=== PATIENT | female | born 1970 | race Caucasian/White ===

== ENCOUNTER 2019-06-26 14:07 | Outpatient (CLI) | payer OTHER, SELFPAY ==
--- NOTE | ~2019-06-26 | XR_ITS ---
XR abdomen/kub 1V 06/26/2019 14:22 Indication: Follow-up kidney stones Procedure: KUB Comparison: 12/14/2015 Findings: Bowel gas pattern is nonobstructive. No renal or ureteral stones are identified. There are pelvic phleboliths. Mild levoscoliosis of the lumbar spine. No acute osseous abnormality. Impression: 1: No acute abdominal abnormality. Reviewed, dictated and finalized at location A. Impression: 1: No acute abdominal abnormality.
== END 2019-06-26 14:08 | disposition home or self-care (01) ==
LOC: ANHIMG 14:13
PROVIDERS: PCP Family Medicine; Visit Provider Internal Medicine Nephrology
DX: N20.0 Calculus of kidney (principal)
CPT/HCPCS: 74018

== ENCOUNTER 2019-07-02 20:16 | Emergency (ER) | payer OTHER, SELFPAY ==
--- NOTE | ~2019-07-02 | XR_ITS ---
EXAMINATION: XR chest 1V portable EXAM DATE: 07/02/2019 21:10 INDICATION: Posterior chest pain. TECHNIQUE: Portable AP frontal chest x-ray was obtained. Comparison is made to prior examination from 10/14/2015. FINDINGS: The lungs are clear. There are no pleural effusions. Cardiomediastinal silhouette is norm al. There is no pneumothorax suspected. The bones and soft tissues are unremarkable. IMPRESSION: No acute cardiopulmonary findings. Reviewed, dictated and finalized at location A.
[2019-07-02 20:20] VITALS: BP 129/64; PULSE 87; RESP 19; TEMP 35.9; O2SAT 100
--- NOTE | 2019-07-02 20:33 | ECG_ITS ---
Measurements Intervals [place] Rate: 89 P: 45 GA: 191 QRS: 36 QRSD: 96 T: 29 QT: 351 QTc: 429 Interpretive Statements SINUS RHYTHM LOW QRS VOLTAGE IN PRECORDIAL LEADS DELAYED PRECORDIAL R/S TRANSITION BORDERLINE T WAVE ABNORMALITY- INFERIOR LEADS BASELINE ARTIFACT- I, II, III, AVR, AVF, V4 BORDERLINE ECG Electronically Signed On 07-03-2019 7:00:28 CDT by Josemanuel Torres D.O.
--- NOTE | 2019-07-02 20:43 | ED.GENADULT ---
HPI - General Adult General Chief complaint: Back Pain/Injury Stated complaint: chest pain Time Seen by Provider: 07/02/19 20:21 Source: patient Mode of arrival: ambulatory Limitations: no limitations History of Present Illness HPI narrative: This patient is a 48 yo female who presents for evaluation of left upper back since Sunday. Patient states she has tingling pain starting in her left upper back and it radiates around substernal chest. She also reports she has pain under left arm. This pain has been constant. She denies exacerbating factors. She reports she took hydrocodone last night that helped with her pain. She denies associated diaphoresis, sob, cough, fever, dizziness. Onset (ago): day(s) (5 days) Related Data Allergies Allergy/AdvReac Type Severity Reaction Status Date / Time No Known Allergies Allergy Unverified 05/05/19 07:51 Review of Systems Review of Systems: All systems reviewed & are unremarkable except as noted in HPI and below Constitutional: Constitutional: Denies chills and Denies fever(s) Cardiovascular: Cardiovascular: Reports chest pain Respiratory: Respiratory: Denies cough and Denies dyspnea Gastrointestinal: Gastrointestinal: Reports nausea Musculoskeletal: Musculoskeletal: Denies back pain PMFSH Past Medical History Medical History Diabetes High cholesterol History of kidney stones Surgical History Surgical History History of foot surgery History of surgical removal of skin lesion Family History Family History Father Hypertension Mother Hypertension Family history of chronic obstructive pulmonary disease Depression Family history of cataracts Family history of arthritis Sibling Family history of lupus erythematosus Family history of heart disease in male family member before age 55 Grandparent Hypertension Family history of atrial fibrillation Family history of heart disease in male family member before age 55 Diabetes mellitus Other Cerebrovascular accident Family history of allergic disorder Family history of cardiovascular disease Family history of elevated blood lipids Family history of obesity Family history of thyroid disease Family history of ulcerative colitis Social History Social History Smoking status: Never smoker Alcohol intake: current Exam Narrative: Exam Narrative: GENERAL: Well-appearing, well-nourished, and in no acute distress. HEAD: Normocephalic, atraumatic EYES: PERRLA and EOMI, conjunctiva clear without discharge NECK: Supple, without lymphadenopathy or mass RESPIRATORY: No respiratory distress, Airway patent, Respirations non-labored, Clear to auscultation without rales, rhonchi or wheeze HEART: Regular rate and rhythm. No murmur heard. Normal peripheral pulses. ABDOMEN: Soft, nontender, nondistended, normal active bowel sounds. No masses. No rebound or guarding, No organomegaly. EXTREMITIES: No edema, normal strength with full range of motion. SKIN: Warm, dry; there is vesciular cluster in left upper back and 2 smaller area under left breast. NEURO: Alert and oriented x3. CN 2-12 grossly intact. No focal deficits. PSYCH: Normal mood and affect. Course Reevaluation(s) Reevaluation #1: Patient has declined pain medication. I discussed with patient with rash along area of pain and dermatome her pain appears to be due to shingles. Unlikely aortic pathology, unllikely PE or cardiac or pancreatic. She has no abdominal tenderness. Date: 07/02/19 Time: 22:11 Vital Signs Vital signs: Vital Signs Temperature 96.7 F L 07/02/19 20:20 Pulse Rate 87 07/02/19 20:20 Respiratory Rate 19 07/02/19 20:20 Blood Pressure 129/64 07/02/19 20:20 Pulse Oximetry 100 07/02/19 20:20 Temperature 98.1 F 07/02/19 22:23 P
[2019-07-02 20:51] LABS: Basophils Absolute Auto 0.1 K/mm3 (0.0-0.1); Basophils Percent Auto 1.5 % (0.2-1.2); Eosinophils Absolute Auto 0.8 K/mm3 (0-0.3); Eosinophils Percent Auto 12.2 % (0-4.4); Hematocrit 45.4 % (37.0-47.0); Hemoglobin 15.1 g/dL (12.0-15.0); Immature Granulocyte Absolute 0.02 K/mm3 (0.00-0.031); Immature Granulocyte Percent A 0.3 % (0-0.5); Lymphocytes Absolute Auto 2.21 K/mm3 (0.9-3.2); Lymphocytes Percent Auto 33.7 % (18.3-44.2); Mean Corpuscular HGB Conc 33.3 g/dl (32-36); Mean Corpuscular Hemoglobin 28.9 pg (26-34); Mean Platelet Volume 11.3 fl (7.4-10.4); Monocytes Absolute Auto 0.7 K/mm3 (0.1-0.6); Monocytes Percent Auto 11.3 % (2.6-8.5); Neutrophils Absolute Auto 2.7 K/mm3 (1.3-6.7); Platelet Count Result 345 k/mm3 (150-375); Red Blood Count 5.22 M/mm3 (4.2-5.4); Red Cell Distribution Width 13.4 % (11.5-14.5); White Blood Count 6.6 K/mm3 (4.5-10.0)
[2019-07-02 21:03] LABS: Potassium 3.8 mmol/L (3.4-5.0)
[2019-07-02 21:08] LABS: INR 0.9; Prothrombin Time 11.5 Seconds (11.1-14.7)
[2019-07-02 21:09] LABS: Partial Thromboplastin Time 20.9 SECONDS (22.3-36.8)
[2019-07-02 21:11] LABS: Blood Urea Nitrogen 18 mg/dL (7-17); Carbon Dioxide 27 mmol/L (22-30); Chloride 99 mmol/L (98-107); Estimated CRCL calculation 113 ml/min; Estimated Glomerular Filt Rate > 60; Glucose 122 mg/dL (65-105); Sodium 137 mmol/L (137-145)
[2019-07-02 21:14] LABS: Add Urine Microscopic? NO; Appearance Urine Clear (Clear); Bilirubin Urine Negative (Negative); Blood Urine Negative (Negative); Color Urine Colorless (Yellow); Glucose Urine UA Negative (Negative); Ketones Urine Negative (Negative); Leukocyte Esterase Ur Negative LEU/UL (Negative); Nitrate Urine Negative (Negative); Protein Urine Negative (Negative); Specific Grav Ur 1.005 (1.001-1.035); Urobilinogen Urine Negative mg/dL (<2.0)
[2019-07-02 21:15] LABS: Troponin I < 0.012 ng/mL (0.000-0.034)
[2019-07-02 21:31] VITALS: BP 110/53; PULSE 99; RESP 14; O2SAT 96
[2019-07-02 22:23] VITALS: BP 108/63; PULSE 94; RESP 17; TEMP 36.7; O2SAT 99
== END 2019-07-02 22:26 | disposition home or self-care (01) ==
PROVIDERS: Emergency Provider General Practice; PCP Family Medicine
DX: B02.9 Zoster without complications (principal); E11.9 Type 2 diabetes mellitus without complications; E78.00 Pure hypercholesterolemia, unspecified; Z87.442 Personal history of urinary calculi; R94.31 Abnormal electrocardiogram [ECG] [EKG]
CPT/HCPCS: 36415; 71045; 80048; 81003; 84484; 85025; 85380; 85610; 85730; 93005; 99284

== ENCOUNTER → 2020-02-12 10:45 | Outpatient (CLI) | payer OTHER, SELFPAY ==
--- NOTE | ~2020-02-12 | DEXA_ITS ---
Bone Density Report Name: Lluvia Childress Age: 49 Sex: Female Ethnicity: White Date of : 1970 Indication: postmenopausal; screening for osteoporosis; Referring Provider: Destiny, Jeannine Study: Bone densitometry was performed. Exam Date: February 12, 2020 Accession number: [id number] Bone Density: Region BMD T-score Z-score Classification AP Spine (L1-L4) 0.973 -0.7 0.1 Normal Femoral Neck (Left) 0.788 -0.6 0.2 Normal Total Hip (Left) 0.964 0.2 0.7 Normal Femoral Neck (Right) 0.832 -0.2 0.6 Normal Total Hip (Right) 1.005 0.5 1.0 Normal Total Hip Mean 0.985 0.4 0.9 Normal World Health Organization criteria for BMD impression classify patients as: Normal (T-score at or above -1.0), Osteopenia (T-score between -1.0 and -2.5), or Osteoporosis (T-score at or below -2.5). 10-year Fracture Risk: FRAX not reported because: All T-scores for Spine Total, Hip Total, Femoral Neck at or above -1.0 Clinical Information Provided by Patient: Has used the following medications: Vitamin D, MTV Patient maximum height was 64 Menopause Age: 48 No regular weight bearing exercise Drinks caffeinated beverages Onset of menses at age 11 Number of children 2 Missed period for more than 6 months in a row Impression: The patient has normal bone mass. Discussion: BONE DENSITY IS ABOVE THE MINIMUM DESIRABLE LEVEL AT ALL SKELETAL SITES TESTED. This patient?s bone mineral density is above the minimum desirable level (T-score -1.0 or better) at all sites measured. The patient should follow a healthful lifestyle (good nutrition with adequate calcium and vitamin D, and appropriate weight-bearing exercise). Follow-Up: Consider repeating this study in 5 years or sooner if there is some new clinical indication. Reported by: [facility] on 02/12/2020 11:16:00 AM. Reviewed, dictated and finalized at location AMario Alberto ANDREWS
--- NOTE | ~2020-02-12 | MM_ITS ---
EXAMINATION: MM screening [facility] BI w afshin HISTORY: Screening mammogram TECHNIQUE: Craniocaudal and mediolateral oblique 3-D tomosynthesis images were obtained and synthetic 2-D images were generated. CAD analysis was submitted and interpreted. COMPARISON: 11/13/2018, 10/31/2017, 10/11/2016 BREAST PARENCHYMAL COMPOSITION: The breasts are almost entirely fatty. FINDINGS: There is no evidence of suspicious mass, calcification, or architectural distortion to sugg est malignancy in either breast. There has been no suspicious interval change. IMPRESSION: 1. No mammographic evidence of malignancy. 2. Recommend routine screening mammography in one year. BI-RADS Category 1: Negative Reviewed, dictated and finalized at location A. N LAYER
== END ==
PROVIDERS: PCP Physician Assistant; Visit Provider Nurse Practitioner
DX: Z12.31 Encounter for screening mammogram for malignant neoplasm of breast (principal); Z78.0 Asymptomatic menopausal state
CPT/HCPCS: 77063; 77067; 77080

== ENCOUNTER → 2020-03-11 11:09 | Outpatient (CLI) | payer OTHER, SELFPAY ==
--- NOTE | ~2020-03-11 | CT_ITS ---
EXAMINATION: CT abdomen pelvis wo con DATE: 03/11/2020 11:27 INDICATION: Calculus of kidney TECHNIQUE: Computed tomography (CT) of the abdomen and pelvis was performed without intravenous contr ast. The dose-length product (DLP) was 378.40 mGy-cm. Automated exposure control and iterative recons truction technique were employed. COMPARISON: 08/01/2017 FINDINGS: Minimal dependent atelectasis is present in the lung bases. The heart size is normal. The l iver is diffusely low in attenuation when compared with the spleen, consistent with hepatic steatosis . The spleen, pancreas, gallbladder, and adrenal glands are normal. The kidneys are unremarkable. No stones are identified in the kidneys, ureters, or bladder. There is no hydronephrosis or hydroureter. A moderate volume of colonic stool is present. The appendix is normal. No pathologically enlarged ab dominal or pelvic lymph nodes are identified. There is no free intraperitoneal gas or evidence of bow el obstruction. There is mild lumbar spondylosis. A tiny fat-containing umbilical hernia is noted. IMPRESSION: 1. No urolithiasis identified. No hydronephrosis or hydroureter. Reviewed, dictated and finalized at location A. X NETWORK SYSTEMS ADMINISTRATOR
== END ==
PROVIDERS: PCP Family Medicine; Visit Provider Internal Medicine Nephrology
DX: N20.0 Calculus of kidney (principal)
CPT/HCPCS: 74176

== ENCOUNTER 2020-03-26 07:02 | Outpatient (NON) | payer OTHER, SELFPAY ==
[2020-03-26 19:18] LABS: SARS-CoV-2 RNA PCR Negative
== END 2020-03-26 07:03 ==
PROVIDERS: Family Provider Physician Assistant; PCP Family Medicine; Visit Provider Physician Assistant
DX: Z01.812 Encounter for preprocedural laboratory examination (principal); Z20.822 Contact with and (suspected) exposure to COVID-19
CPT/HCPCS: C9803; U0003; U0005

== ENCOUNTER → 2020-03-31 07:41 | Outpatient (CLI) | payer OTHER, SELFPAY ==
--- NOTE | ~2020-03-31 | US_ITS ---
EXAMINATION: US right upper quadrant EXAM DATE: 03/31/2020 08:08 INDICATION: Abdominal pain. TECHNIQUE: Multiple grayscale and Doppler images of the abdomen right upper quadrant were obtained (b y a technologist who performed the scan) and subsequently reviewed. Comparison is made to prior exami nation from 08/10/2017. FINDINGS: The pancreatic head and body are normal in appearance. The pancreatic tail is not visualized. There is echogenic liver parenchyma with poor penetration, hepatic steatosis. There are no focal liver le sions identified. There is no evidence of intrahepatic biliary duct dilation. Portal venous flow w as seen in the hepatopedal, normal direction and has normal Doppler waveform. No right-sided hydrone phrosis. Common bile duct measures 5 mm, which is normal. The gallbladder wall is normal in thickness, with ex pected amount of distention. No sonographic evidence of pericholecystic fluid. There is no cholelit hiases. Technologist performing exam reports patient did not demonstrate sonographic Koch's sign. Please note that this sign is less reliable in patients who have received pain medication. IMPRESSION: 1. Hepatic steatosis. Reviewed, dictated and finalized at location B. FINISHER IMPRESSION: 1. Hepatic steatosis.
== END ==
PROVIDERS: PCP Physician Assistant; Visit Provider Physician Assistant
DX: K76.0 Fatty (change of) liver, not elsewhere classified (principal)
CPT/HCPCS: 76705

== ENCOUNTER → 2021-02-16 11:19 | Outpatient (CLI) | payer OTHER, SELFPAY ==
--- NOTE | ~2021-02-16 | MM_ITS ---
EXAMINATION: MM screening [facility] BI w afshin HISTORY: Screening mammogram TECHNIQUE: Craniocaudal and mediolateral oblique 3-D tomosynthesis images were obtained and synthetic 2-D images were generated. CAD analysis was submitted and interpreted. COMPARISON: 02/12/2020, 11/13/2018, 10/31/2017 BREAST PARENCHYMAL COMPOSITION: The breasts are almost entirely fatty. FINDINGS: There is no evidence of suspicious mass, calcification, or architectural distortion to sugg est malignancy in either breast. There has been no suspicious interval change. IMPRESSION: 1. No mammographic evidence of malignancy. 2. Recommend routine screening mammography in one year. BI-RADS Category 1: Negative Reviewed, dictated and finalized at location A. CARE TEACHER
== END ==
PROVIDERS: PCP Physician Assistant; Visit Provider Obstetrics & Gynecology Gynecology
DX: Z12.31 Encounter for screening mammogram for malignant neoplasm of breast (principal)
CPT/HCPCS: 77063; 77067

== ENCOUNTER → 2021-08-15 15:01 | Outpatient (CLI) | payer OTHER, SELFPAY ==
--- NOTE | ~2021-08-15 | CT_ITS ---
EXAMINATION: CT abdomen pelvis wo con DATE: 08/15/2021 15:26 INDICATION: Essential hypertension, hematuria TECHNIQUE: Computed tomography (CT) of the abdomen and pelvis was performed without intravenous contr ast. The dose-length product (DLP) was 728.08 mGy-cm. Automated exposure control and iterative recons truction technique were employed. COMPARISON: 03/11/2020 FINDINGS: The lung bases are clear. The heart size is normal. The liver is diffusely low in attenuati on when compared with the spleen, consistent with hepatic steatosis. The spleen, pancreas, gallbladde r, and adrenal glands are normal. Medullary nephrocalcinosis is noted in the kidneys. No pathological ly enlarged abdominal or pelvic lymph nodes are identified. There is no free intraperitoneal gas or e vidence of bowel obstruction. The appendix is normal. There is mild lumbar spondylosis. IMPRESSION: 1. Bilateral medullary nephrocalcinosis. Reviewed, dictated and finalized at location A.
== END ==
PROVIDERS: PCP Physician Assistant; Visit Provider Internal Medicine Nephrology
DX: I10 Essential (primary) hypertension (principal); E83.59 Other disorders of calcium metabolism; N29 Other disorders of kidney and ureter in diseases classified elsewhere
CPT/HCPCS: 74176

== ENCOUNTER 2022-01-12 11:29 | Emergency (ER) | payer BC, SELFPAY ==
[2022-01-12 11:41] VITALS: BP 99/49; PULSE 79; RESP 18; TEMP 36.3; O2SAT 99
--- NOTE | 2022-01-12 12:27 | ED.URI ---
HPI - URI/Sore Throat General Chief Complaint: Upper Respiratory Infection Stated Complaint: Congestion,Sore Throat,Headache Time Seen by Provider: 01/12/22 12:27 Source: patient Mode of arrival: ambulatory Limitations: no limitations History of Present Illness HPI Narrative: 51-year-old female presents with complaint of sore throat, headache, body aches, fatigue, congestion and sinus pressure for 2 days. States that she has her son's wedding this weekend needs medication to help her feel better. Is hoping that she has strep throat said it can be treated. She also reports some pressure to both of her ears. She is not taking any [id number] medications to treat her symptoms. Denies cough and shortness of breath. Afebrile. All systems reviewed and negative except as noted above. Related Data Home Medications Medication Instructions Recorded Confirmed allopurinol 100 mg tablet 100 mg PO DAILY 01/12/22 01/12/22 carvedilol 3.125 mg tablet 3.125 mg PO DAILY 01/12/22 01/12/22 hydrochlorothiazide 25 mg tablet 25 mg PO DAILY 01/12/22 01/12/22 metformin 500 mg tablet 500 mg PO DAILY 01/12/22 01/12/22 Allergies Allergy/AdvReac Type Severity Reaction Status Date / Time No Known Allergies Allergy Unverified 05/05/19 07:51 Review of Systems Review of Systems: CONSTITUTIONAL: Denies fever, chills, or sweats. reports fatigue. EYES: Denies visual changes, redness, or discharge. ENT: Reports rhinorrhea, congestion, sore throat and otalgia. CARDIOVASCULAR: Denies chest pain, palpitations, or edema. RESPIRATORY: Denies cough or dyspnea. GASTROINTESTINAL: Denies abdominal pain, nausea, vomiting, or diarrhea. GENITOURINARY: Denies dysuria or hematuria. SKIN: Denies rash or itching. MUSCULOSKELETAL: Denies back pain, joint pain, or myalgia. NEUROLOGIC: Denies headache, numbness, or weakness. PSYCHIATRIC: Denies anxiety or depression. All other systems reviewed are negative, except as documented in HPI. [facility] Past Medical History Medical History (Updated 01/12/22 @ 12:36 by Amelia Walden NP) Diabetes High cholesterol History of kidney stones Surgical History Surgical History History of foot surgery History of surgical removal of skin lesion Family History Family History Father Hypertension Mother Hypertension Family history of chronic obstructive pulmonary disease Depression Family history of cataracts Family history of arthritis Sibling Family history of lupus erythematosus Family history of heart disease in male family member before age 55 Grandparent Hypertension Family history of atrial fibrillation Family history of heart disease in male family member before age 55 Diabetes mellitus Other Cerebrovascular accident Family history of allergic disorder Family history of cardiovascular disease Family history of elevated blood lipids Family history of obesity Family history of thyroid disease Family history of ulcerative colitis Social History Social History Smoking status: Never smoker Alcohol intake: current Comments At time of signature, agree with nursing past medical, surgical, social and family history. There is no relevant family history pertinent to the presenting complaint. Exam Narrative: GENERAL: This is a well-nourished, well-developed patient, in no apparent distress. HEAD: normocephalic, atraumatic. EYES: PERRL. Sclera clear/white. Vision is grossly intact. EARS: External ears normal, auditory canals clear and without drainage, Mild fluid bilateral TMs without perforation. NOSE: External nose normal with Clear nasal drainage, erythema to naris. No sinus tenderness. THROAT: Mucous membranes moist, Erythema to posterior pharynx with clear postnasal drainage. NECK: Neck supple, non-tender without lymphadenopathy, masses or thyromegaly. CAR
== END 2022-01-12 12:47 | disposition home or self-care (01) ==
PROVIDERS: Emergency Provider Nurse Practitioner Family; PCP Physician Assistant
DX: J01.90 Acute sinusitis, unspecified (principal); E11.9 Type 2 diabetes mellitus without complications; E78.00 Pure hypercholesterolemia, unspecified
CPT/HCPCS: 99213; G0463

== ENCOUNTER → 2022-03-23 09:55 | Outpatient (CLI) | payer BC, SELFPAY ==
--- NOTE | ~2022-03-23 | MM_ITS ---
EXAMINATION: MM screening [facility] BI w afshin HISTORY: Screening mammogram TECHNIQUE: Craniocaudal and mediolateral oblique 3-D tomosynthesis images were obtained and synthetic 2-D images were generated. CAD analysis was submitted and interpreted. COMPARISON: 02/16/2021, 02/02/2020, 11/13/2018 BREAST PARENCHYMAL COMPOSITION: There are scattered areas of fibroglandular density. FINDINGS: No suspicious mass, calcification, or architectural distortion are identified in either gurmeet ast to suggest malignancy. There has been no suspicious interval change. IMPRESSION: 1. No mammographic evidence of malignancy. 2. Recommend routine screening mammography in one year. BI-RADS Category 1: Negative Reviewed, dictated and finalized at location A. ICAL TRIAL EDUCATOR
== END ==
PROVIDERS: PCP Physician Assistant; Visit Provider Nurse Practitioner
DX: Z12.31 Encounter for screening mammogram for malignant neoplasm of breast (principal)
CPT/HCPCS: 77063; 77067

== ENCOUNTER → 2023-01-09 12:40 | Outpatient (CLI) | payer BC, SELFPAY ==
--- NOTE | ~2023-01-09 | CT_ITS ---
Non-contrast Head CT History: Headache, vertigo Technique: Axial non-contrast imaging of the brain was performed. Dose reduction technique was used on this scan by utilizing automated exposure control and iterative reconstruction technique. The dose -length product (DLP) was 599.57 mGy-cm. Findings: There is no evidence of intracranial hemorrhage, mass lesion, or acute infarct. Brain par enchyma appears normal. The ventricles and subarachnoid spaces are normal in size. The calvarium ap pears normal. The visualized paranasal sinuses and mastoid air cells are clear. Impression: No significant abnormality seen. Reviewed, dictated and finalized at location . OGY INSTRUCTOR Impression: No significant abnormality seen.
== END ==
PROVIDERS: PCP Physician Assistant; Visit Provider Physician Assistant
DX: R51.9 Headache, unspecified (principal)
CPT/HCPCS: 70450

== ENCOUNTER → 2023-03-23 14:37 | Outpatient (CLI) | payer BC, SELFPAY ==
--- NOTE | ~2023-03-23 | XR_ITS ---
EXAMINATION: XR cervical spine 4-5V DATE: 03/23/2023 15:28 INDICATION: Neck pain. TECHNIQUE: 5 views of cervical spine including flexion and extension views were obtained. COMPARISON: None. FINDINGS: There is hypolordosis of upper cervical spine. There is no abnormal motion with flexion or extension. Vertebral body heights are normal. There is mildly decreased disc height at C4-C5 and C5-C 6. The facet joints are unremarkable. No central canal stenosis or prevertebral soft tissue swelling. IMPRESSION: 1. Mild cervical spondylosis. Reviewed, dictated and finalized at location E. ER
== END ==
PROVIDERS: PCP Physician Assistant
DX: M43.02 Spondylolysis, cervical region (principal)
CPT/HCPCS: 72050

== ENCOUNTER → 2023-04-11 14:10 | Outpatient (CLI) | payer BC, SELFPAY ==
--- NOTE | ~2023-04-11 | MM_ITS ---
EXAMINATION: MM screening [facility] BI w afshin HISTORY: Screening mammogram TECHNIQUE: Craniocaudal and mediolateral oblique 3-D tomosynthesis images were obtained and synthetic 2-D images were generated. CAD analysis was submitted and interpreted. COMPARISON: 03/23/2022, 02/16/2021, 02/12/2020 BREAST PARENCHYMAL COMPOSITION: There are scattered areas of fibroglandular density. FINDINGS: RIGHT BREAST: No suspicious mass, calcification, or architectural distortion are identified to sugges t malignancy. There has been no suspicious interval change. LEFT BREAST: An asymmetry is present in the posterior third of the slightly inner breast 8 cm from th e nipple on the craniocaudal view. IMPRESSION: 1. Left breast asymmetry on the craniocaudal view. 2. Additional mammographic views and possible breast ultrasound are recommended. BI-RADS Category 0: Incomplete: Needs additional imaging evaluation. Reviewed, dictated and finalized at location A. CONSERVATIONIST IMPRESSION: 1. Left breast asymmetry on the craniocaudal view. 2. Additional mammographic views and possible breast ultrasound are recommended . BI-RADS Category 0: Incomplete: Needs additional imaging evaluation.
== END ==
PROVIDERS: PCP Nurse Practitioner; Visit Provider Nurse Practitioner
DX: Z12.31 Encounter for screening mammogram for malignant neoplasm of breast (principal); R92.8 Other abnormal and inconclusive findings on diagnostic imaging of breast
CPT/HCPCS: 77063; 77067

== ENCOUNTER 2023-05-11 09:19 | Outpatient (CLI) | payer BC, SELFPAY ==
--- NOTE | ~2023-05-11 | MM_ITS ---
Patient: Lluvia Childress Date of : 1970 Corrected Report Order # [facility] 05/14/2023 This report was recreated on 05/14/2023. Original report was signed by Sukumar Mcfarland M.D. on 05/11/2023 11:39 CDT. EXAMINATION: DIAGNOSTIC BREAST ONESIMO - LT; US breast LT limited HISTORY: Left breast asymmetry reported in posterior third of slightly inner left breast 8 cm from nipple on April 11, 2023 screening craniocaudal view TECHNIQUE: Additional 3-D tomosynthesis images of left breast were performed and synthetic 2-D images were generated. CAD analysis was submitted and interpreted. High resolution upper inner quadrant breast ultrasound was performed. COMPARISON: April 11, 2023 bilateral screening mammogram FINDINGS: MAMMOGRAPHIC FINDINGS: No suspicious mass or architectural distortion is detected. ULTRASOUND: 10:00 10 cm from nipple: Rounded circumscribed 2.4 mm relatively sonolucent lesion is noted, without shadowing, likely a small cyst. 6 month follow-up is recommended. IMPRESSION: 1. Probably benign finding 2. 6 month follow-up diagnostic left mammogram and left breast targeted ultrasound are recommended BI-RADS category 3, probably benign findings. Reviewed, dictated and finalized at location A. MTDD IMPRESSION: 1. Probably benign finding 2. 6 month follow-up diagnostic left mammogram and left breast targeted ultraso und are recommended BI-RADS category 3, probably benign findings.
== END 2023-05-11 09:20 ==
PROVIDERS: PCP Nurse Practitioner; Visit Provider Nurse Practitioner
DX: R92.8 Other abnormal and inconclusive findings on diagnostic imaging of breast (principal)
CPT/HCPCS: 76642; 77061; 77065; G0279

== ENCOUNTER 2023-08-30 21:38 | Inpatient (IN) | payer BC, SELFPAY ==
--- NOTE | ~2023-08-30 | US_ITS ---
EXAMINATION: US venous doppler [facility] DATE: 09/01/2023 11:49 INDICATION: Positive d-dimer. Sinus tachycardia. TECHNIQUE: Grayscale ultrasound images without and with compression and Doppler ultrasound images of the bilateral lower extremity veins were obtained. COMPARISON: None. FINDINGS: The visualized portions of right common femoral vein, profunda (deep) femoral vein, femoral vein, pop liteal vein, peroneal veins, posterior tibial veins, and greater saphenous vein outflow are patent. The visualized portions of left common femoral vein, profunda femoral vein, femoral vein, popliteal v ein, peroneal veins, posterior tibial veins, and greater saphenous vein outflow are patent. IMPRESSION: 1. No deep venous thrombosis. Reviewed, dictated and finalized at location A.
--- NOTE | ~2023-08-30 | CT_ITS ---
Non-contrast CT scan of the Abdomen and Pelvis Clinical indication: Sepsis, UTI Technique: 2.5 mm axial scans were obtained through the abdomen and pelvis without intravenous or or al contrast. Dose reduction technique was used on this scan by utilizing automated exposure control a nd iterative reconstruction technique. The dose-length product (DLP) was 379.23 mGy-cm. COMPARISON: 08/15/2021 Findings: Images through the lung bases reveal no abnormalities. There is no evidence of renal or ureteral calculi. The kidneys and the ureters are nondilated. The liver, spleen, pancreas, gallbladder, and adrenals appear normal. There is no aortic aneurysm. There is no evidence of bowel obstruction. Images through the pelvis were performed. There is no evidence of ascites or lymphadenopathy. Urinary bladder unremarkable. No pelvic mass seen. Impression: No significant abnormality seen. Reviewed, dictated and finalized at [facility]. Impression: No significant abnormality seen.
--- NOTE | ~2023-08-30 | CT_ITS ---
EXAMINATION: CTA chest PE protocol DATE: 08/31/2023 11:10 INDICATION: Tachycardia. Sepsis. TECHNIQUE: Computed tomography angiography (CTA) of the chest was performed with 100 mL Omnipaque-350 intravenous contrast timed to evaluate the pulmonary arteries. Coronal maximum intensity projection 3D-reconstructions were created by the technologist. Automated exposure control and iterative reconst ruction technique were employed. The dose-length product was 253.87 mGy-cm. COMPARISON: CT abdomen and pelvis 08/30/2023 FINDINGS: The lungs demonstrate mild atelectasis. There is a 4 mm nodule in right upper lobe, likely benign. No pleural effusion. The heart size is normal. No pericardial effusion. There is no pulmonary embolus. There is diffuse hepatic steatosis. There is mild thoracic spondylosis. IMPRESSION: 1. No pulmonary embolus. Reviewed, dictated and finalized at location A. IMPRESSION: 1. No pulmonary embolus.
--- NOTE | ~2023-08-30 | US_ITS ---
EXAMINATION: US right upper quadrant DATE: 09/02/2023 08:32 INDICATION: Abnormal liver function tests. TECHNIQUE: Multiple grayscale and Doppler ultrasound images of the abdomen were obtained. COMPARISON: CT abdomen and pelvis 08/30/2023 FINDINGS: The visualized portions of the head, body, and tail of the pancreas are normal. There is di ffuse hepatic steatosis. There is normal flow in main portal vein. The gallbladder is normal in size. No gallstones or gallbladder wall thickening. There is no sonographic Koch's sign. The common duct is normal and measures 4 mm. IMPRESSION: 1. Diffuse hepatic steatosis. Reviewed, dictated and finalized at location E.
[2023-08-30 21:47] VITALS: BP 95/41; PULSE 139; RESP 16; TEMP 36.7; O2SAT 100
--- NOTE | 2023-08-30 21:57 | ECG_ITS ---
Test Date: 2023-08-30 22:09:23 Measurements Intervals [place] Rate: 127 P: 62 DE: 150 QRS: 53 QRSD: 80 T: 46 QT: 325 QTc: 473 Interpretive Statements SINUS TACHYCARDIA LOW QRS VOLTAGE IN PRECORDIAL LEADS BASELINE ARTIFACT- I, II, III, AVR, AVL, AVF ABNORMAL ECG No previous ECG available for comparison Electronically Signed On 08-31-2023 06:14:44 CDT by Josemanuel Torres D.O.
[2023-08-30 22:56] LABS: Basophils Percent Auto 0.4 % (0.2-1.2); Eosinophils Absolute Auto 0.1 K/mm3 (0-0.3); Eosinophils Percent Auto 1.1 % (0-4.4); Hematocrit 39.1 % (37.0-47.0); Hemoglobin 13.5 g/dL (12.0-15.0); Immature Granulocyte Absolute 0.04 K/mm3 (0.00-0.031); Immature Granulocyte Percent A 0.4 % (0-0.5); Lymphocytes Absolute Auto 0.87 K/mm3 (0.9-3.2); Lymphocytes Percent Auto 9.7 % (18.3-44.2); Mean Corpuscular HGB Conc 34.5 g/dl (32-36); Mean Corpuscular Hemoglobin 29.6 pg (26-34); Mean Corpuscular Volume 85.7 fl (80-100); Mean Platelet Volume 10.2 fl (7.4-10.4); Monocytes Absolute Auto 0.2 K/mm3 (0.1-0.6); Monocytes Percent Auto 2.4 % (2.6-8.5); Neutrophils Absolute Auto 7.7 K/mm3 (1.3-6.7); Platelet Count Result 330 k/mm3 (150-375); Red Blood Count 4.56 M/mm3 (4.2-5.4); Red Cell Distribution Width 13.6 % (11.5-14.5); White Blood Count 8.9 K/mm3 (4.5-10.0)
[2023-08-30 22:59] LABS: Appearance Urine Clear (Clear); Bacteria Urine None Seen /hpf; Bilirubin Urine Negative (Negative); Blood Urine 1+ (Negative); Color Urine Yellow (Yellow); Glucose Urine UA 3+ mg/dL (Negative); Ketones Urine 1+ mg/dL (Negative); Leukocyte Esterase Ur 1+ LEU/UL (Negative); Nitrate Urine Negative (Negative); Non Pathogenic Casts 0-2; Protein Urine Negative (Negative); Specific Grav Ur 1.017 (1.001-1.035); Squamous Epithelial Cell Urine None Seen /hpf (Few); Urobilinogen Urine 0.2 mg/dL (<2.0); WBC Urine 21-50 /hpf (0-3); pH Urine 5.5 (5.0-9.0)
[2023-08-30] MEDS: SODIUM CHLORIDE 0.9% IV 1,000 ML 999 ML IV CONT ×2 (23:00→23:01)
[2023-08-30] MEDS: ACETAMINOPHEN 500 MG TABLET 1000 MG PO (23:01)
--- NOTE | 2023-08-30 23:02 | ED.FEMALEGU ---
HPI - Female Genitourinary General Chief complaint: Urogenital-Female <ZULMA Narvaez Last Filed: 08/31/23 02:19> Stated complaint: chills, recent UTI dx <ZULMA Narvaez Last Filed: 08/31/23 02:19> Time Seen by Provider: 08/30/23 22:08 <ZULMA Narvaez Last Filed: 08/31/23 02:19> Source: patient <ZULMA Narvaez Last Filed: 08/31/23 02:19> Mode of arrival: ambulatory <ZULMA Narvaez Last Filed: 08/31/23 02:19> Limitations: no limitations <ZULMA Narvaez Last Filed: 08/31/23 02:19> History of Present Illness HPI Narrative: Patient is a 52-year-old female who presents the ED with report of chills and UTI symptoms. Patient remain reports she noticed mild dysuria/hematuria last night into today with urinary frequency. She has history of UTIs. She then went to watch [employer] with her family tonight and reports she was sitting for approximately 1 hour and felt fine before she developed severe cold shaking chills. She then prompted here for further evaluation. Patient denies any abdominal or back pain. Denies nausea, vomiting. She was noted to be febrile upon arrival to the ED at 102.4? F. She denied having known fevers at home today. She does report previous history of sepsis related to kidney infection. <ZULMA Narvaez Last Filed: 08/31/23 02:19> Related Data Home medications: Home Medications Medication Instructions Recorded Confirmed Zyrtec 10 mg PO HS 08/31/23 08/31/23 nitrofurantoin 08/31/23 monohydrate/macrocrystals 100 mg capsule <ZULMA Narvaez Last Filed: 08/31/23 02:19> Allergies/Adverse reactions: Allergies Allergy/AdvReac Type Severity Reaction Status Date / Time No Known Allergies Allergy Verified 08/27/23 09:14 <Dulce Saba PA-C - Last Filed: 08/31/23 02:19> Review of Systems Review of Systems: CONSTITUTIONAL: See HPI. GASTROINTESTINAL: Denies abdominal pain, nausea, vomiting, or diarrhea. GENITOURINARY: See HPI. MUSCULOSKELETAL: Denies back pain, Flank pain. <Dulce Saba PA-C - Last Filed: 08/31/23 02:19> All systems reviewed & are unremarkable except as noted in HPI and below <Dulce Saba PA-C - Last Filed: 08/31/23 02:19> [facility] Past Medical History Medical History: Medical History Allergic rhinitis Calculus of kidney Diabetes mellitus type 2 in nonobese Essential (primary) hypertension GERD (gastroesophageal reflux disease) History of nephrolithiasis History of pancreatitis History of shingles Hyperlipidemia Neuropathy Vitamin D deficiency <Dulce Saba PA-C - Last Filed: 08/31/23 02:19> Surgical History Surgical History: Surgical History History of bladder suspension procedure 2008 History of extraction of renal calculus with stent placement 02/25/2015 History of foot surgery bunionectomy History of surgical removal of skin lesion nevus removal 1997 History of tonsillectomy <Dulce Saba PA-C - Last Filed: 08/31/23 02:19> Family History Family History: Family History (Updated 08/31/23 @ 04:17 by Zulema Echols RN) Father Hypertension Family history of cardiovascular disease Family history of elevated blood lipids Mother Family history of arthritis Depression Family history of chronic obstructive pulmonary disease Family history of cataracts Hypertension Cerebrovascular accident Family history of cardiovascular disease Sibling Family history of heart disease in male family member before age 55 Family history of lupus erythematosus Grandparent Family history of heart disease in male family member before age 55 Diabetes mellitus Family history of atrial fibrillation Hypertens
[2023-08-30 23:03] VITALS: BP 142/65; PULSE 122; RESP 15; TEMP 39.1; O2SAT 99
[2023-08-30 23:07] LABS: Alanine Aminotransferase 31 U/L (6-35); Albumin Level 4.4 g/dL (3.5-5.1); Alkaline Phosphatase 112 U/L (38-126); Anion Gap 10 mmol/L (4-12); Aspartate Amino Transferase 32 U/L (14-36); Bilirubin,Total 0.5 mg/dL (0.2-1.3); Blood Urea Nitrogen 19 mg/dL (7-17); Calcium 9.5 mg/dL (8.4-10.2); Carbon Dioxide 23 mmol/L (22-30); Chloride 104 mmol/L (98-107); Estimated CRCL calculation 94 ml/min; Estimated Glomerular Filt Rate > 60; Glucose 172 mg/dL (65-110); Potassium 3.5 mmol/L (3.4-5.0); Sodium 137 mmol/L (137-145)
[2023-08-30 23:09] LABS: Add Urine Microscopic? YES
[2023-08-31] VITALS (15 sets, daily range): BP systolic 105–124; BP diastolic 45–63; PULSE 101–134; RESP 16–20; TEMP 36–38.2; O2SAT 97–100; BMI 31.0
[2023-08-31 01:54] LABS: Reflex Lactic Acid Yes or No Add Lactic
[2023-08-31 02:31] LABS: Lactic Acid 2.8 mmol/L (0.7-2.0)
[2023-08-31] MEDS: SODIUM CHLORIDE 0.9% IV 1,000 ML 999 ML IV CONT (02:36)
[2023-08-31] MEDS: KETOROLAC 30 MG/ML VIAL (*BKC) IV PUSH (03:07)
[2023-08-31] MEDS: VANCOMYCIN 1,000 MG/NS 250 ML 1,000 MG/250 ML BAG 250 MG IVPB ×2 (03:36→15:51)
--- NOTE | 2023-08-31 04:33 | ADMGEN ---
This patient, Lluvia Childress, was admitted to IMU Room 210-01. Patient/family oriented to hospital policies and general routines including ID bracelet, bed and alarms, visiting hours, pain management, procedures, bathroom and other care routines, personal items, smoking policy, room service/diet, and visiting hours. Information on how to activate the Rapid Response Team has been discussed. Patient/Family are encouraged to report perceived risks to care and to ask questions if they do not understand what they are told or what they should do. Pt arrived to the unit at 0400.
--- NOTE | 2023-08-31 04:41 | PM.IMHP ---
H&P: HPI History of Present Illness Date/Time: 08/31/23 04:41 Chief Complaint: UTI symptoms Narrative: This is a very pleasant 52-year-old female with PMH [id number] diabetes mellitus, hypertension, GERD, hyperlipidemia, vitamin-D deficiency, history of pancreatitis, history of nephrolithiasis, history of UTI with sepsis. Her last UTI was a year ago. She had UTI with sepsis in 2016. She presents complaining of chills dysuria hematuria. On the day of admission she felt UTI symptoms and had a tele health visit and was prescribed antibiotic. She then went to go watch [employer] and while sitting she developed severe cold shaking chills. She denied nausea vomiting diarrhea abdominal pain chest pain shortness of breath. She has no history of clots. ER evaluation revealed fever of 102.4? F, WBC normal at 8900, serum creatinine 0.50, lactic acid 4.0, urinalysis positive for leuko esterase, 21-50 wbc's. Blood pressure low which resolved with 3 L normal saline bolus, she has remained tachycardic sinus tachycardia in low 130s. CT abdomen pelvis no evidence of pyelonephritis or ureterolithiasis preliminary, awaiting official read. Patient received Rocephin 2 g and vancomycin, Tylenol 1000 mg p.o. x1, ketorolac 30 mg IV x1. Admitted on 08/31/2023 for UTI with sepsis without shock, severe. Review of Systems Review of Systems: All systems reviewed & are unremarkable except as noted in HPI and below (Subjective) [facility] Past Medical History Medical History Allergic rhinitis Calculus of kidney Diabetes mellitus type 2 in nonobese Essential (primary) hypertension GERD (gastroesophageal reflux disease) History of nephrolithiasis History of pancreatitis History of shingles Hyperlipidemia Neuropathy Vitamin D deficiency Surgical History Surgical History History of bladder suspension procedure 2008 History of extraction of renal calculus with stent placement 02/25/2015 History of foot surgery bunionectomy History of surgical removal of skin lesion nevus removal 1997 History of tonsillectomy Family History Family History (Updated 08/31/23 @ 04:17 by Zulema R. Echols, RN) Father Hypertension Family history of cardiovascular disease Family history of elevated blood lipids Mother Family history of arthritis Depression Family history of chronic obstructive pulmonary disease Family history of cataracts Hypertension Cerebrovascular accident Family history of cardiovascular disease Sibling Family history of heart disease in male family member before age 55 Family history of lupus erythematosus Grandparent Family history of heart disease in male family member before age 55 Diabetes mellitus Family history of atrial fibrillation Hypertension Other Family history of obesity Family history of thyroid disease Family history of ulcerative colitis Social History Social History Smoking status: Never smoker Second hand tobacco smoke exposure: Yes Alcohol intake: never Substance use: never Substance use type: does not use Do You Feel Safe in your Home?: Yes Lack of Transportation: No Lack of Food: Never True Current Housing: I Have Housing Concerned About Future Housing: No Difficulty Paying Gas/Electric Bills: No Difficulty Paying for Meds: No Currently Unemployed: No Education: Associate Degree Difficulty w/ Childcare or Family Care: No Living arrangements: with family Occupation/Education: occupation Gender identity (if verbalized by the patient): Female Sexual Orientation (if Verbalized by the Patient): Straight or Heterosexual Spiritual care concerns: No Meds Home Medications and Allergies Home Medications Medication Instructions Recorded Confirmed Type pot
[2023-08-31] MEDS: SODIUM CHLORIDE 0.9% IV 1,000 ML 125 ML IV CONT ×2 (04:59→13:00)
[2023-08-31] MEDS: ACETAMINOPHEN 500 MG TABLET 1000 MG PO ×2 (05:05→15:51)
[2023-08-31 05:46] LABS: D Dimer 0.66 ug/mL (<0.48)
[2023-08-31 08:09] LABS: Glucose Point of Care 241 mg/dl (65-105)
[2023-08-31] MEDS: INSULIN ASPART (*BKC) 100 UNITS/ML SUB-Q ×3 (08:25→16:59)
[2023-08-31] MEDS: IBUPROFEN 600 MG TABLET PO (08:26)
[2023-08-31 11:54] LABS: Glucose Point of Care 221 mg/dl (65-105)
--- NOTE | 2023-08-31 15:41 | WPDURCON ---
Assessment and Plan Assessment and plan (1) Sepsis: Qualifiers: Sepsis acute organ dysfunction status: unspecified Sepsis type: sepsis due to unspecified organism Qualified Code(s): A41.9 - Sepsis, unspecified organism Code(s): A41.9 - Sepsis, unspecified organism Status: Acute Assessment and Plan: Septic on presentation with T-max 102.4?, lactic 4.0, tachycardia. Secondary to UTI. Continue IV fluids, broad-spectrum antibiotics, management per primary team (2) Urinary tract infection: Qualifiers: Hematuria presence: with hematuria Urinary tract infection type: acute cystitis Qualified Code(s): N30.01 - Acute cystitis with hematuria Code(s): N39.0 - Urinary tract infection, site not specified Status: Acute Assessment and Plan: Continue vancomycin and ceftriaxone while awaiting urine culture, pending at this time. Tailor antibiotics accordingly She has history of 2-3 UTIs/year. No cultures available for review to document recurrent UTIs. Due to frequency of UTIs however would proceed with outpatient cystoscopy for further evaluation. CT was unremarkable today, no anatomic abnormalities contributing. Discussed UTI prevention strategies. Recommend increased oral hydration and daily antibacterial wipes. Will arrange outpatient follow-up for further evaluation Urology Consult Note HPI Date Seen: 08/31/23 Requesting Physician: Kristina Koch MD Primary Care Provider: John Reed MD Consult Narrative Narrative: Lluvia Childress is a 52 year old female with history stones, UTIs, type 2 diabetes mellitus who is currently admitted for sepsis secondary to UTI. The patient states she awoke yesterday morning with dysuria and faint pink hematuria. Because it was a holiday, she had a telehealth appointment via her insurance company and was given a prescription for Macrobid. She took 1 dose of this. Later in the evening, she developed rigors and presented to the ER for evaluation. On arrival, she was febrile at 102.4?, tachycardic, additional vital signs stable, WBC within limits at 8.9, creatinine 0.5, lactic acid 4.0, UA abnormal with positive leukocytes, RBC, WBC. A CT of her abdomen/pelvis was completed that showed no renal or ureteral stones, hydronephrosis, and unremarkable bladder. She was admitted and started on IV fluids and broad-spectrum antibiotics. At the time of my evaluation, she is feeling improved. She continues to endorse fevers and chills. She denies nausea or vomiting but does report poor appetite. Denies suprapubic pain, flank pain, or back pain. Patient states that she has had problems with ongoing urinary tract infections for many years. She estimates 2-3 UTIs per year for the past 5 years. She was last seen as an outpatient 04/2019 for gross hematuria at that time had negative culture and cytology. A CT urogram was ordered but not completed. Prior to that, she was seen in 2018 for ureteroscopy. She follows Nephrology metabolic stone evaluation/management. She underwent bladder suspension surgery in 2008. Review of prior cultures indicates only 1 positive culture from 11/2022 with growth of Enterococcus. Review of Systems Review of Systems: All systems reviewed & are unremarkable except as noted in HPI and below PMFSH Past Medical History Medical History Allergic rhinitis Calculus of kidney Diabetes mellitus type 2 in nonobese Essential (primary) hypertension GERD (gastroesophageal reflux disease) History of nephrolithiasis History of pancreatitis History of shingles Hyperlipidemia Neuropathy Vitamin D deficiency Surgical History Surgical History History of bladder suspension procedure 2008 History of extraction of renal calculus with stent placement 02/25/2015 History of foot surgery bunionectomy His
[2023-08-31 16:16] LABS: Glucose Point of Care 229 mg/dl (65-105)
--- NOTE | 2023-08-31 16:55 | PM.IMPN ---
Progress Note: A&P Assessment and Plan (1) Sepsis: Qualifiers: Sepsis acute organ dysfunction status: unspecified Sepsis type: sepsis due to unspecified organism Qualified Code(s): A41.9 - Sepsis, unspecified organism Code(s): A41.9 - Sepsis, unspecified organism Status: Acute Assessment and Plan: Patient with severe sepsis without shock due to UTI with tachycardia, HotN and lactic acidosis. Lactic acidosis 4 --> 2.8 status post 3 L normal saline bolus. Hypotension resolved. Remains on IV fluids. Patient with sinus tachycardia in 130s. EKG without acute ischemia. [place] due to sepsis. PE Wells score is 1 but D-dimer positive. CTA chest negative for PE. UCx in 2022 grew Enterococcus. She was started on ceftriaxone and vancomycin after cultures drawn. UCx pending BCx pending Continue IV abx. Check LE dopplers (2) Urinary tract infection: Qualifiers: Hematuria presence: with hematuria Urinary tract infection type: acute cystitis Qualified Code(s): N30.01 - Acute cystitis with hematuria Code(s): N39.0 - Urinary tract infection, site not specified Status: Acute Assessment and Plan: UA is consistent with UTI. UCx collected. Rocephin and Vanco started. UCx pending. Follow up on UCx results. (3) Lactic acidosis: Code(s): E87.20 - Acidosis, unspecified Status: Acute Assessment and Plan: As above (4) Essential (primary) hypertension: Code(s): I10 - Essential (primary) hypertension Status: Acute Assessment and Plan: Patient's blood pressure was reviewed on 08/30 Blood pressure was soft on admission but responded with IV fluids and now remains well controlled. Will continue to monitor. Chlorthalidone remains on hold. (5) Diabetes mellitus type 2 in nonobese: Code(s): E11.9 - Type 2 diabetes mellitus without complications Status: Acute Assessment and Plan: A1c 7.1 in July. The patient's blood glucose was reviewed on 08/30 Glucose remains poorly controlled. Continue AccuCheks covering with sliding scale. Hypoglycemia protocol available as needed. Advance sliding scale. Metformin remains on hold. Continue Diab diet Plan DVT prophylaxis - SCDs Code status -full Subjective Date/time seen: 08/31/23 16:55 Interval history: 52yo female with DM, HTN and hx of UTI with sepsis here for UTI symptoms. She feels 'tired'. No abd or back pain. Complains of headache. Does have this at home but this is mor severe. no CP or SOB. Exam Narrative: Tm 102.4 98.6 122/60 114 18 98% ra Gen - NARD Chest - CTA bilaterally, nml RR CV - RRR S1/S2. Tele showing NSR, sinus tachycardia Abd - Soft, NT/ND, Positive BS Back - no CVA tenderness Ext - No pedal edema Psych - Nml mood and affect Skin - Warm and dry Objective Data Vital Signs Vital Signs: Vital Signs - 24 hr 08/30/23 21:47 08/30/23 23:03 08/31/23 00:04 Temperature 98.1 F 102.4 F H 100.8 F H Pulse Rate 139 H 122 H 132 H Respiratory Rate 16 15 19 Blood Pressure 95/41 L 142/65 H 112/50 L Pulse Oximetry 100 99 99 Oxygen Delivery Room Air 08/31/23 02:35 08/31/23 04:00 08/31/23 04:17 Temperature 98.8 F 97.6 F Pulse Rate 134 H 132 H 128 H Respiratory Rate 19 20 Blood Pressure 121/57 L 124/45 L Pulse Oximetry 98 99 Oxygen Delivery 08/31/23 05:53 08/31/23 08:00 08/31/23 08:00 Temperature 98 F Pulse Rate 130 H 127 H 123 H Respiratory Rate 18 Blood Pressure 118/55 L Pulse Oximetry 98 Oxygen Delivery 08/31/23 10:00 08/31/23 12:00 08/31/23 12:00 Temperature 96.8 F L Pulse Rate 109 H 109 H 108 H Respiratory Rate 16 Blood Pressure 117/63 Pulse Oximetry 97 Oxygen Delivery 08/31/23 15:47 Temperature 98.6 F Pulse Rate 114 H Respiratory Rate 18 Blood Pressure 122/60 Pulse Oximetry 98 Oxygen Delivery Intake/Output Intake/Output: Intake & Output 08/28/23
[2023-08-31 20:47] LABS: Glucose Point of Care 154 mg/dl (65-105)
[2023-09-01] VITALS (11 sets, daily range): BP systolic 109–122; BP diastolic 43–64; PULSE 84–109; RESP 14–20; TEMP 36.1–36.9; O2SAT 94–100
[2023-09-01] MEDS: cefTRIAXone 2 GM/NS 100 ML 2 GM/100 ML BAG IVPB (03:19)
[2023-09-01] MEDS: SODIUM CHLORIDE 0.9% IV 1,000 ML 70 ML IV CONT (03:20)
[2023-09-01] MEDS: VANCOMYCIN 1,000 MG/NS 250 ML 1,000 MG/250 ML BAG 250 MG IVPB (03:24)
[2023-09-01 03:56] LABS: Basophils Absolute Auto 0.1 K/mm3 (0.0-0.1); Basophils Percent Auto 1.3 % (0.2-1.2); Eosinophils Absolute Auto 0.2 K/mm3 (0-0.3); Eosinophils Percent Auto 4.5 % (0-4.4); Hematocrit 33.5 % (37.0-47.0); Hemoglobin 11.2 g/dL (12.0-15.0); Immature Granulocyte Absolute 0.04 K/mm3 (0.00-0.031); Immature Granulocyte Percent A 1.1 % (0-0.5); Lymphocytes Absolute Auto 0.55 K/mm3 (0.9-3.2); Lymphocytes Percent Auto 14.6 % (18.3-44.2); Mean Corpuscular HGB Conc 33.4 g/dl (32-36); Mean Corpuscular Volume 86.8 fl (80-100); Mean Platelet Volume 10.5 fl (7.4-10.4); Monocytes Absolute Auto 0.3 K/mm3 (0.1-0.6); Neutrophils Absolute Auto 2.6 K/mm3 (1.3-6.7); Neutrophils Percent Auto 69.5 % (45.5-73.1); Platelet Count Result 204 k/mm3 (150-375); Red Blood Count 3.86 M/mm3 (4.2-5.4); White Blood Count 3.8 K/mm3 (4.5-10.0)
[2023-09-01 04:17] LABS: Alanine Aminotransferase 94 U/L (6-35); Albumin Level 3.2 g/dL (3.5-5.1); Alkaline Phosphatase 87 U/L (38-126); Anion Gap 7 mmol/L (4-12); Aspartate Amino Transferase 114 U/L (14-36); Bilirubin,Total 0.9 mg/dL (0.2-1.3); Blood Urea Nitrogen 7 mg/dL (7-17); Calcium 8.2 mg/dL (8.4-10.2); Carbon Dioxide 25 mmol/L (22-30); Chloride 108 mmol/L (98-107); Estimated CRCL calculation 93 ml/min; Estimated Glomerular Filt Rate > 60; Glucose 153 mg/dL (65-110); Magnesium 1.7 mg/dL (1.6-2.3); Potassium 2.9 mmol/L (3.4-5.0); Sodium 140 mmol/L (137-145)
[2023-09-01 04:25] LABS: CRP 25.9 mg/dL (<1.0)
[2023-09-01] MEDS: POTASSIUM CHLORIDE 20 MEQ ER TABLET 40 MEQ PO (06:18)
[2023-09-01] MEDS: KCL 20 MEQ/SW 100 ML 100 ML 50 MEQ IVPB (06:18)
[2023-09-01 08:07] LABS: Glucose Point of Care 140 mg/dl (65-105)
[2023-09-01] MEDS: MAGNESIUM SULF 2 GM/WATER 50ML 2 GM/50 ML BAG IVPB (10:07)
--- NOTE | 2023-09-01 11:38 | PM.IMPN ---
Progress Note: A&P Assessment and Plan (1) Sepsis: Qualifiers: Sepsis acute organ dysfunction status: unspecified Sepsis type: sepsis due to unspecified organism Qualified Code(s): A41.9 - Sepsis, unspecified organism Code(s): A41.9 - Sepsis, unspecified organism Status: Acute Assessment and Plan: Patient with severe sepsis without shock due to UTI with tachycardia, HotN and lactic acidosis. Lactic acidosis 4 --> 2.8 status post 3 L normal saline bolus. Hypotension resolved. Remains on IV fluids. Patient with sinus tachycardia in 130s. EKG without acute ischemia. [place] due to sepsis. PE Wells score is 1 but D-dimer positive. CTA chest negative for PE. Doppler ordered UCx in 2022 grew Enterococcus. She was started on ceftriaxone and vancomycin after cultures drawn. UCx pending BCx NGTD Continue IV abx. (2) Urinary tract infection: Qualifiers: Hematuria presence: with hematuria Urinary tract infection type: acute cystitis Qualified Code(s): N30.01 - Acute cystitis with hematuria Code(s): N39.0 - Urinary tract infection, site not specified Status: Acute Assessment and Plan: UA is consistent with UTI. UCx collected. Rocephin and Vanco started. UCx pending. Follow up on UCx results. (3) Lactic acidosis: Code(s): E87.20 - Acidosis, unspecified Status: Acute Assessment and Plan: As above (4) Essential (primary) hypertension: Code(s): I10 - Essential (primary) hypertension Status: Acute Assessment and Plan: Patient's blood pressure was reviewed on 08/31 Blood pressure was soft on admission but responded with IV fluids and now remains well controlled. Will continue to monitor. Chlorthalidone remains on hold. (5) Diabetes mellitus type 2 in nonobese: Code(s): E11.9 - Type 2 diabetes mellitus without complications Status: Acute Assessment and Plan: A1c 7.1 in July. The patient's blood glucose was reviewed on 08/31 Glucose better controlled. Continue AccuCheks covering with sliding scale. Hypoglycemia protocol available as needed. Advance sliding scale. Metformin remains on hold. Continue Diab diet Plan Hypokalemia - felt related to IV fluids washing out potassium. Will replace. Repeat levels later today. Stop IV fluids DVT prophylaxis - SCDs Code status -full Subjective Date/time seen: 09/01/23 11:38 Interval history: 52yo female with DM, HTN and hx of UTI with sepsis here for UTI symptoms. She feels well. Slept well. No CP, SOB, n/v, cough. headache better. No abd/back pain. Exam Narrative: AF 96.9 115/43 99 18 99% ra Gen - NARD Chest - CTA bilaterally, nml RR CV - RRR S1/S2. Tele showing one episode of [place] I 2nd AVB Abd - Soft, NT/ND, Positive BS Ext - No pedal edema Psych - Nml mood and affect Skin - Warm and dry Objective Data Vital Signs Vital Signs: Vital Signs - 24 hr 08/31/23 12:00 08/31/23 12:00 08/31/23 15:47 Temperature 96.8 F L 98.6 F Pulse Rate 109 H 108 H 114 H Respiratory Rate 16 18 Blood Pressure 117/63 122/60 Pulse Oximetry 97 98 Oxygen Delivery 08/31/23 14:00 08/31/23 16:00 08/31/23 18:00 Temperature Pulse Rate 120 H 109 H 104 H Respiratory Rate Blood Pressure Pulse Oximetry Oxygen Delivery 08/31/23 20:39 08/31/23 20:00 08/31/23 22:00 Temperature 97.8 F Pulse Rate 102 H 101 H 108 H Respiratory Rate 18 Blood Pressure 105/54 L Pulse Oximetry 100 Oxygen Delivery 09/01/23 00:00 09/01/23 00:00 09/01/23 01:55 Temperature 97.7 F Pulse Rate 105 H 103 H 97 Respiratory Rate 18 Blood Pressure 111/44 L Pulse Oximetry 96 Oxygen Delivery 09/01/23 03:45 09/01/23 04:00 09/01/23 06:00 Temperature 97.6 F Pulse Rate 104 H 96 98 Respiratory Rate 18 Blood Pressure 109/51 L Pulse Oximetry 97 Oxygen Delivery 09/01/23 07:24 09/01/23 08:00
[2023-09-01 12:33] LABS: Glucose Point of Care 169 mg/dl (65-105)
[2023-09-01 15:17] LABS: Vancomycin Trough 6.2 ug/mL (10.0-20.0)
[2023-09-01 15:19] LABS: Anion Gap 8 mmol/L (4-12); Blood Urea Nitrogen 8 mg/dL (7-17); Calcium 8.7 mg/dL (8.4-10.2); Carbon Dioxide 23 mmol/L (22-30); Chloride 109 mmol/L (98-107); Estimated CRCL calculation 93 ml/min; Estimated Glomerular Filt Rate > 60; Glucose 235 mg/dL (65-110); Magnesium 2.3 mg/dL (1.6-2.3); Potassium 3.6 mmol/L (3.4-5.0); Sodium 140 mmol/L (137-145)
[2023-09-01 15:48] LABS: Hepatitis B Surface Antigen Negative (Negative)
--- NOTE | 2023-09-01 15:53 | PC.NURSE ---
Pt arrived to room 326 at room 15:50.
[2023-09-01 15:54] LABS: HAV RESULT Negative (Negative); Hepatitis B Core IgM Result Negative (Negative)
[2023-09-01 16:05] LABS: Hepatitis C Virus Antibody Negative (Negative)
[2023-09-01] MEDS: VANCOMYCIN 1,500 MG/NS 500 ML 1,500 MG/500 ML BAG 125 MG IVPB (16:19)
[2023-09-01 16:21] LABS: Folic Acid 13.3 ng/mL (2.76->20)
[2023-09-01 16:53] LABS: Glucose Point of Care 177 mg/dl (65-105)
[2023-09-01 21:23] LABS: Glucose Point of Care 179 mg/dl (65-105)
[2023-09-02] MEDS: cefTRIAXone 2 GM/NS 100 ML 2 GM/100 ML BAG IVPB (04:20)
[2023-09-02] MEDS: VANCOMYCIN 1,500 MG/NS 500 ML 1,500 MG/500 ML BAG 125 MG IVPB (05:11)
[2023-09-02 06:02] VITALS: BP 122/56; PULSE 105; RESP 16; TEMP 36.8; O2SAT 100
[2023-09-02 06:12] LABS: Basophils Absolute Auto 0.1 K/mm3 (0.0-0.1); Eosinophils Absolute Auto 0.3 K/mm3 (0-0.3); Eosinophils Percent Auto 10.8 % (0-4.4); Hemoglobin 11.9 g/dL (12.0-15.0); Immature Granulocyte Absolute 0.02 K/mm3 (0.00-0.031); Immature Granulocyte Percent A 0.7 % (0-0.5); Lymphocytes Absolute Auto 1.17 K/mm3 (0.9-3.2); Lymphocytes Percent Auto 39.5 % (18.3-44.2); Mean Corpuscular HGB Conc 32.2 g/dl (32-36); Mean Corpuscular Hemoglobin 28.5 pg (26-34); Mean Corpuscular Volume 88.5 fl (80-100); Mean Platelet Volume 10.4 fl (7.4-10.4); Monocytes Absolute Auto 0.3 K/mm3 (0.1-0.6); Monocytes Percent Auto 10.1 % (2.6-8.5); Neutrophils Absolute Auto 1.1 K/mm3 (1.3-6.7); Neutrophils Percent Auto 36.9 % (45.5-73.1); Platelet Count Result 227 k/mm3 (150-375); Red Blood Count 4.18 M/mm3 (4.2-5.4); Red Cell Distribution Width 13.8 % (11.5-14.5)
[2023-09-02 06:35] LABS: Alanine Aminotransferase 122 U/L (6-35); Albumin Level 3.6 g/dL (3.5-5.1); Alkaline Phosphatase 128 U/L (38-126); Anion Gap 7 mmol/L (4-12); Aspartate Amino Transferase 94 U/L (14-36); Bilirubin,Total 0.5 mg/dL (0.2-1.3); Blood Urea Nitrogen 7 mg/dL (7-17); Calcium 8.3 mg/dL (8.4-10.2); Carbon Dioxide 24 mmol/L (22-30); Chloride 110 mmol/L (98-107); Estimated CRCL calculation 94 ml/min; Estimated Glomerular Filt Rate > 60; Glucose 158 mg/dL (65-110); Magnesium 2.1 mg/dL (1.6-2.3); Potassium 3.5 mmol/L (3.4-5.0); Sodium 141 mmol/L (137-145)
[2023-09-02 07:40] LABS: Glucose Point of Care 176 mg/dl (65-105)
[2023-09-02 11:45] LABS: Glucose Point of Care 196 mg/dl (65-105)
[2023-09-02 14:00] VITALS: BP 121/70; PULSE 82; RESP 14; TEMP 36.2; O2SAT 99
--- NOTE | 2023-09-02 15:25 | PM.DS ---
DS: Admitting Diagnosis Discharge Date 09/02/23 Admitting Diagnosis UTI symptoms DS: Discharge Diagnosis Discharge Diagnosis (1) Sepsis: Qualifiers: Sepsis acute organ dysfunction status: unspecified Sepsis type: sepsis due to unspecified organism Qualified Code(s): A41.9 - Sepsis, unspecified organism Code(s): A41.9 - Sepsis, unspecified organism Status: Acute (2) Urinary tract infection: Qualifiers: Hematuria presence: with hematuria Urinary tract infection type: acute cystitis Qualified Code(s): N30.01 - Acute cystitis with hematuria Code(s): N39.0 - Urinary tract infection, site not specified Status: Acute (3) Lactic acidosis: Code(s): E87.20 - Acidosis, unspecified Status: Acute (4) Essential (primary) hypertension: Code(s): I10 - Essential (primary) hypertension Status: Acute (5) Diabetes mellitus type 2 in nonobese: Code(s): E11.9 - Type 2 diabetes mellitus without complications Status: Acute (6) Elevated LFTs: Code(s): R79.89 - Other specified abnormal findings of blood chemistry Status: Acute (7) Hypokalemia: Code(s): E87.6 - Hypokalemia Status: Acute (8) Leukopenia: Code(s): D72.819 - Decreased white blood cell count, unspecified Status: Acute DS: Summary Hospital Course Reason for hospitalization: 52yo female with DM, HTN and hx of UTI with sepsis here for UTI symptoms. Please see H&P for details. Hospital Course: Patient presents with UTI symptoms and found to have severe sepsis without shock with fever, tachycardia, HotN and lactic acidosis. Lactic acidosis 4 --> 2.8 status post 3 L normal saline bolus. Hypotension resolved. Patient with sinus tachycardia in 130s. EKG without acute ischemia. [place] due to sepsis. CT Abd/Pelvis showing no significant abnormalities. Urology consulted. PE Wells score is 1 but D-dimer positive. CTA chest negative for PE. Doppler negative for DVT. UCx in 2022 grew Enterococcus but only 10-49K colonies. She was started on ceftriaxone and vancomycin after cultures drawn. She had been on Macrobid on admission. UCx negative. BCx NGTD. Elevated LFTs noted with AST up to 114 and ALT 94. Levels normal on admission (7/4) but not checked yesterday so could be related to the HoTN/sepsis picture. CTA chest showing diffuse hepatic steatosis. Prior values normal. AST better and RUQ ultrasound showing diffuse hepatic steatosis but no acute findings. Hepatitis panel is negative. CRP at 26 but not checked on admission. WBC normal on admission but dropped to 3000. Related to vancomycin possibly. ADAM ordered. She is clinically much improved. IV fluids stopped. Blood pressure remained stable. She had urinary symptoms with evidence of sepsis. Negative urine culture could be related to starting abx prior to collecting sample. Elevated CRP may be related to non-infectious etiology. Her sister with SLE. She had clinical improvement and was able to be discharged home with plans to continue abx to complete a course. Repeat labs ordered. Status at Discharge Cognitive/behavioral status at discharge: stable Time Spent with Patient Time attestation: Total time spent providing and/or coordinating discharge services: 35 minuets Time spent: Greater than 30 minutes Exam Narrative: AF 97.1 121/70 82 14 99% ra Gen - NARD Chest - CTA bilaterally, nml RR CV - RRR S1/S2 Abd - Soft, NT/ND, Positive BS Ext - No pedal edema Psych - Nml mood and affect Skin - Warm and dry DS: Data Data Completed and Pending Labs on day of discharge: Labs from last 24 hours 09/02/23 09/02/23 09/02/23 11:31 07:31 05:55 WBC 3.0 L RBC 4.18 L Hgb 11.9 L Hct 37.0 MCV 88.5 MCH 28.5 MCHC 32.2 RDW 13.8 Plt Count 227 MPV 10.4 Immature Gran % (Auto) 0.7 H Neut % (Auto) 36.9 L Lymph % (Auto) 39.5 [place] % (Auto) 10.1 H Eos % (Auto)
--- NOTE | 2023-09-07 07:33 | PC.NURSE ---
ADAM- negative DS DNA- <1 Dr. Block aware.
== END 2023-09-02 16:25 | disposition home or self-care (01) | DRG 872 ==
LOC: ANHED 08-31 02:19 → ANHIMU 08-31 02:52 → ANH3MEDSUR 09-01 15:47
PROVIDERS: Emergency Medicine; Student in an Organized Health Care Education/Training Program; Admitting Provider General Practice; Emergency Provider Physician Assistant; PCP Family Medicine; Visit Provider Internal Medicine
DX: A41.9 Sepsis, unspecified organism (principal); N39.0 Urinary tract infection, site not specified; R65.20 Severe sepsis without septic shock; K21.9 Gastro-esophageal reflux disease without esophagitis; E11.42 Type 2 diabetes mellitus with diabetic polyneuropathy; E78.5 Hyperlipidemia, unspecified; I10 Essential (primary) hypertension; E55.9 Vitamin D deficiency, unspecified; E87.6 Hypokalemia
CPT/HCPCS: 36415; 71275; 74176; 76705; 80048; 80053; 80074; 80202; 81001; 81025; 82607; 82746; 82948; 83605; 83735; 85025; 85380; 86038; 86039; 86140; 86225; 87040; 87086; 93005; 93970; 96365; 96367; 96375; 99285; A9270; G0378; J0696; J1815; J1885; J3370; J3475; J3480; J7030; Q9967

== ENCOUNTER 2023-09-10 09:12 | Outpatient (CLI) | payer BC, SELFPAY ==
[2023-09-10 09:40] LABS: Basophils Absolute Auto 0.1 K/mm3 (0.0-0.1); Basophils Percent Auto 1.5 % (0.2-1.2); Eosinophils Absolute Auto 0.4 K/mm3 (0-0.3); Eosinophils Percent Auto 5.5 % (0-4.4); Hematocrit 41.6 % (37.0-47.0); Hemoglobin 13.7 g/dL (12.0-15.0); Immature Granulocyte Absolute 0.22 K/mm3 (0.00-0.031); Immature Granulocyte Percent A 3.3 % (0-0.5); Lymphocytes Absolute Auto 2.13 K/mm3 (0.9-3.2); Lymphocytes Percent Auto 32.4 % (18.3-44.2); Mean Corpuscular HGB Conc 32.9 g/dl (32-36); Mean Corpuscular Hemoglobin 28.8 pg (26-34); Mean Corpuscular Volume 87.4 fl (80-100); Mean Platelet Volume 9.6 fl (7.4-10.4); Monocytes Absolute Auto 0.6 K/mm3 (0.1-0.6); Monocytes Percent Auto 9.7 % (2.6-8.5); Neutrophils Absolute Auto 3.1 K/mm3 (1.3-6.7); Neutrophils Percent Auto 47.6 % (45.5-73.1); Platelet Count Result 416 k/mm3 (150-375); Red Blood Count 4.76 M/mm3 (4.2-5.4); Red Cell Distribution Width 13.2 % (11.5-14.5); White Blood Count 6.6 K/mm3 (4.5-10.0)
[2023-09-10 10:01] LABS: Alanine Aminotransferase 68 U/L (6-35); Albumin Level 4.6 g/dL (3.5-5.1); Alkaline Phosphatase 120 U/L (38-126); Anion Gap 11 mmol/L (4-12); Aspartate Amino Transferase 35 U/L (14-36); Bilirubin,Total 0.7 mg/dL (0.2-1.3); Blood Urea Nitrogen 15 mg/dL (7-17); CRP < 0.5 mg/dL (<1.0); Calcium 9.6 mg/dL (8.4-10.2); Carbon Dioxide 27 mmol/L (22-30); Chloride 98 mmol/L (98-107); Estimated Glomerular Filt Rate > 60; Glucose 196 mg/dL (65-110); Sodium 136 mmol/L (137-145)
== END 2023-09-10 09:13 | disposition home or self-care (01) ==
LOC: ANHLAB 09:13
PROVIDERS: PCP Family Medicine; Visit Provider Internal Medicine
DX: D72.819 Decreased white blood cell count, unspecified (principal); R79.89 Other specified abnormal findings of blood chemistry
CPT/HCPCS: 36415; 80053; 85025; 86140

== ENCOUNTER 2023-10-26 08:41 | Outpatient (CLI) | payer BC, SELFPAY ==
--- NOTE | ~2023-10-26 | MMUS_ITS ---
EXAMINATION: MM diagnostic brittany LT w afshin, US breast LT limited HISTORY: Follow-up left breast cyst TECHNIQUE: Additional 3-D tomosynthesis images of the left breast were performed and synthetic 2-D im ages were generated. CAD analysis was submitted and interpreted. High resolution Limited left breast ultrasound was performed. COMPARISON: 05/11/2023 BREAST PARENCHYMAL COMPOSITION: Not Dense: The breasts are almost entirely fatty. FINDINGS: MAMMOGRAPHIC FINDINGS: There are no suspicious masses, calcifications or architectural distortion in the left breast to sugg est malignancy. ULTRASOUND: Limited left breast ultrasound: Normal heterogeneous echotexture without focal solid or cystic mass. IMPRESSION: 1. No evidence for malignancy in the left breast. 2. Routine yearly screening mammogram and regular clinical breast examination are recommended. BI-RADS Category 1: Negative Reviewed, dictated and finalized at location B. IMPRESSION: 1. No evidence for malignancy in the left breast. 2. Routine yearly screening mammogram and regular clinical breast examination a re recommended. BI-RADS Category 1: Negative
== END 2023-10-26 08:42 | disposition home or self-care (01) ==
LOC: MICIMG 08:42
PROVIDERS: PCP Obstetrics & Gynecology Gynecology; Visit Provider Obstetrics & Gynecology Gynecology
DX: N60.02 Solitary cyst of left breast (principal)
CPT/HCPCS: 76642; 77061; 77065; G0279

== ENCOUNTER 2024-01-22 08:54 | Outpatient (CLI) | payer BC, SELFPAY ==
--- NOTE | ~2024-01-22 | MR_ITS ---
EXAMINATION: MR brain IAC wo/w con DATE: 01/22/2024 09:48 INDICATION: Asymmetric sensorineural hearing loss. TECHNIQUE: Magnetic resonance imaging (MRI) of the brain, brainstem, and internal auditory canals was performed without and with 14 mL MultiHance intravenous contrast. COMPARISON: Brain MRI 07/20/2010 FINDINGS: There are scattered areas of nonspecific increased T2-weighted signal intensity in the cere bral white matter, which is within normal limits for the patient's age. There is no intracranial hemo rrhage, acute infarction, or abnormal intracranial mass lesion. The ventricles are normal in size. Th e orbits are normal. The paranasal sinuses are clear. There is a small left mastoid effusion. The int ernal auditory canals, inner ears, and tympanic cavities are normal. IMPRESSION: 1. Normal aging brain. Reviewed, dictated and finalized at location A. K MIXER IMPRESSION: 1. Normal aging brain.
== END 2024-01-22 08:55 | disposition home or self-care (01) ==
PROVIDERS: PCP Nurse Practitioner
DX: H90.3 Sensorineural hearing loss, bilateral (principal)
CPT/HCPCS: 70553; A9577

== ENCOUNTER 2024-04-18 11:30 | Outpatient (CLI) | payer BC, SELFPAY ==
--- NOTE | ~2024-04-18 | MM_ITS ---
EXAMINATION: MM screening brittany BI w afshin HISTORY: Screening TECHNIQUE: Craniocaudal and mediolateral oblique 3-D tomosynthesis images were obtained and synthetic 2-D images were generated. CAD analysis was submitted and interpreted. COMPARISON: Comparison to multiple prior studies sequentially, with oldest reviewed study dated 01/26. BREAST PARENCHYMAL COMPOSITION: Not dense: There are scattered areas of fibroglandular density. FINDINGS: There is no evidence of suspicious mass, calcification, or architectural distortion to sugg est malignancy in either breast. There has been no suspicious interval change. IMPRESSION: 1. No mammographic evidence of malignancy. 2. Recommend routine screening mammography in one year. BI-RADS Category 1: Negative Reviewed, dictated and finalized at location L. KMAKER
== END 2024-04-18 11:31 | disposition home or self-care (01) ==
LOC: MICIMG 11:31
PROVIDERS: PCP Internal Medicine; Visit Provider Obstetrics & Gynecology Gynecology
DX: Z12.31 Encounter for screening mammogram for malignant neoplasm of breast (principal)
CPT/HCPCS: 77063; 77067